=== PATIENT | male | born 1990 | race Caucasian/White ===

== ENCOUNTER 2017-08-08 15:40 | Emergency (ER) | payer SELFPAY ==
[~2017-08-08] VITALS: Ht 180.3 cm; Wt 86.2 kg
--- NOTE | 2017-08-08 16:27 | ED Upper Extremity ---
General Chief Complaint: Upper Extremity Stated Complaint: L ARM PAIN Nursing Triage Note: ARRIVED VIA AMB WITH COMPLAINTS OF LEFT SHOULDER PAIN STARTING ABOUT ONE MONTH AGO. DENIES INJURY. Nursing Sepsis Screen: No Definite Risk Source: patient Exam Limitations: no limitations History of Present Illness Date Seen by Provider: August 08, 2017 Time Seen by Provider: 16:27 Initial Comments 27 yo male patient presents to the ED with c/o 1 month onset of left shoulder pain. denies known injury. Onset: other (1 month onset) Pain/Injury Location: left shoulder Method of Injury: unknown Modifying Factors: Improves With Immobilization; Worse With Movement Allergies and Home Medications Allergies Coded Allergies: No Known Drug Allergies (Unverified , 08/08/17) Home Medications Diclofenac Sodium 75 Mg Tablet.dr, 75 MG PO BID PRN for pain Prescribed by: KEYLA GRIFFITHS on 08/08/171700 Orphenadrine Citrate 100 Mg Tablet.er, 100 MG PO BID PRN for SPASMS Prescribed by: KEYLA GRIFFITHS on 08/08/171700 Prednisone 20 Mg Tab, 40 MG PO DAILY Prescribed by: KEYLA GRIFFITHS on 08/08/17 170 Patient Home Medication List Home Medication List Reviewed: Yes Constitutional: no symptoms reported Respiratory: no symptoms reported Cardiovascular: no symptoms reported Musculoskeletal: see HPI; No back pain; joint pain (left shoulder); No joint swelling, No neck pain Skin: no symptoms reported Psychiatric/Neurological: Denies Numbness, Denies Paresthesia, Denies Tingling , Denies Weakness All Other Systems Reviewed Negative Unless Noted: Yes (Negative excepted noted.) Past Ehiwcec-Atfrve-Ocpjbs Hx Patient Social History Alcohol Use: Occasionally Uses Recreational Drug Use: Yes Drug of Choice: POT Smoking Status: Current Everyday Smoker Recent Foreign Travel: No Contact w/Someone Who Travel: No Recent Infectious Disease Expo: No Past Medical History Surgeries: Yes (precancerous skin lesions removed ) Orthopedic Respiratory: No Cardiac: No Neurological: No Genitourinary: No Gastrointestinal: No Musculoskeletal: No Endocrine: No HEENT: No Cancer: No Psychosocial: No Integumentary: No Family Medical History Reviewed Nursing Family Hx No Pertinent Family Hx Physical Exam Vital Signs Vital Signs - First Documented 08/08/17 15:50 Temp 98.1 Pulse 92 Resp 18 B/P (MAP) 135/85 (102) Pulse Ox 98 O2 Delivery Room Air Capillary Refill : Less Than 3 Seconds General Appearance: WD/WN, no apparent distress Neck: non-tender, full range of motion, supple, normal inspection Cardiovascular: normal peripheral pulses, regular rate, rhythm, no murmur Respiratory: lungs clear, normal breath sounds, no respiratory distress, no accessory muscle use Back: normal inspection, no vertebral tenderness Shoulder: normal ROM; No bone tenderness; pain, soft tissue tenderness (left shoulder tenderness. ); No swelling Elbow/Forearm: normal inspection, non-tender, no evidence of injury, normal ROM , Left Wrist: Yes normal inspection, Yes non-tender, Yes no evidence of injury, Yes normal ROM Hand: normal inspection, non-tender, no evidence of injury, normal ROM, Left Neurologic/Tendon: normal sensation, normal motor functions, normal tendon functions, responds to pain, no evidence tendon injury Neurologic/Psychiatric: no motor/sensory deficits, alert, normal mood/affect, oriented x 3 Skin: normal color, warm/dry Progress/Results/Core Measures Results/Orders My Orders Orders - KEYLA GRIFFITHS Shoulder, Left, 3 Views (08/08/17 16:09) Hydrocodone/Apap 5/325 Tablet (Lortab 5 (08/08/17 16:58) Vital Signs/I&O 08/08/17 08/08/17 15:50 17:07 Temp 98.1 98.1 Pulse 92 92 Resp 18 18 B/P (MAP) 135/85 (102) 135/85 (102) Pulse Ox 98 98 O2 Delivery Room Air Blood Pressure Mean: 102 Diagnostic Imaging Diagonstic Imaging: Xray Plain Films/CT/US/NM/MRI: other (left shoulder) Comments SHOULDER, LEFT, 3 VIEWS INDICATION: Left shoulder pain. COMPARISON: None. FINDINGS: Three views of the left shoulder were obtained. There is no fracture, dislocation, or other acute bony abnormality identified. The soft tissues appear unremarkable. No radiopaque foreign bodies identified. The visualized portions of the left lung are clear. IMPRESSION: No acute fractures or dislocations of the left shoulder. Dictated by: Dictated on workstation # [id number] Reviewed: Reviewed by Me (radiology report reviewed by me) Departure Communication (Admissions) diagnostic findings discussed with the patient. plan for dsch to home. Impression Primary Impression: Muscle strain of left shoulder region Qualified Codes: S46.912A - Strain of unspecified muscle, fascia and tendon at shoulder and upper arm level, left arm, initial encounter Disposition: HOME, SELF-CARE Condition: Improved Departure-Patient Inst. Decision time for Depature: 16:59 Referrals: NO,LOCAL PHYSICIAN (PCP/Family) Primary Care Physician Patient Instructions: Muscle Strain (DC) Add. Discharge Instructions: All discharge instructions reviewed with patient and/or family. Voiced understanding. Medications as instructed. Tylenol extra strength over-the- counter as directed for pain. You may use an ice pack or heating pad as needed for pain. Follow-up with your primary care provider if no improvement in symptoms in 7-10 days. Return in the emergency department for worsened symptoms or any other concerns. 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
--- NOTE | 2017-08-08 16:48 | Diagnostic Imaging Report ---
INDICATION: Left shoulder pain. COMPARISON: None. FINDINGS: Three views of the left shoulder were obtained. There is no fracture, dislocation, or other acute bony abnormality identified. The soft tissues appear unremarkable. No radiopaque foreign bodies identified. The visualized portions of the left lung are clear. IMPRESSION: No acute fractures or dislocations of the left shoulder. Dictated by: Dictated on workstation # [id number]
[2017-08-08] MEDS ORDERED: HYDROcodone/APAP 5 MG/325 MG (LORTAB) TAB PO STA (16:58)
[2017-08-08] MEDS ORDERED: PRD20T PO (17:00)
[2017-08-08] MEDS ORDERED: ORPH100T PO (17:01)
[2017-08-08] MEDS ORDERED: DICL75TA2 PO (17:01)
[2017-08-08 17:07] VITALS: BP 135/85
== END 2017-08-08 17:07 | disposition home or self-care (01) ==
LOC: ER 15:43
DX: S46.912A Strain of unspecified muscle, fascia and tendon at shoulder and upper arm level, left arm, initial encounter (principal); F12.10 Cannabis abuse, uncomplicated; F17.210 Nicotine dependence, cigarettes, uncomplicated; Z79.52 Long term (current) use of systemic steroids; X58.XXXA Exposure to other specified factors, initial encounter
CPT/HCPCS: 73030

== ENCOUNTER 2017-08-31 14:12 | Emergency (ER) | payer SELFPAY ==
[~2017-08-31] VITALS: Ht 180.3 cm; Wt 86.2 kg
[~2017-08-31 14:12] MED LIST: DICL75TA2 PO; ORPH100T PO; PRD20T PO
--- NOTE | 2017-08-31 15:23 | ED Upper Extremity ---
General Chief Complaint: Upper Extremity Stated Complaint: LEFT SHOULDER PAIN Nursing Triage Note: TO ROOM C/O L SHOULDER PAIN FOR 1 MONTH WAS SEEN IN ED 2 WEEKS AGO WITH NEG WORK UP. SHOULDER NOT ANY BETTER. NEEDS NOTE FOR WORK Nursing Sepsis Screen: No Definite Risk History of Present Illness Date Seen by Provider: August 31, 2017 Time Seen by Provider: 15:10 Initial Comments 27-year-old male reports for recurrent left shoulder pain. He was evaluated here approximately 2 weeks ago and received an x-ray of the left shoulder that showed no acute abnormalities. He has been continuing to work where he does lifting of approximately 100 pounds at a time. He's been taking ibuprofen with minimal improvement in his shoulder symptoms. He is right-hand dominant. He's had no previous history of injuries to his left shoulder. He denies any paresthesias or radicular symptoms in his left upper extremity. Onset: other Pain/Injury Location: left shoulder Method of Injury: unknown Allergies and Home Medications Allergies Coded Allergies: No Known Drug Allergies (Unverified , 08/08/17) Home Medications Naproxen 500 Mg Tablet, 500 MG PO BID Take with food Prescribed by: DAVID HERRERA on 08/31/17 1527 Patient Home Medication List Home Medication List Reviewed: Yes Constitutional: no symptoms reported Musculoskeletal: see HPI, joint pain (Left shoulder pain) All Other Systems Reviewed Negative Unless Noted: Yes Past Gcymfow-Rifsow-Ltphuc Hx Past Med/Social Hx: Reviewed Nursing Past Med/Soc Hx Patient Social History Alcohol Use: Occasionally Uses Recreational Drug Use: Yes Drug of Choice: POT Smoking Status: Current Everyday Smoker Recent Foreign Travel: No Contact w/Someone Who Travel: No Recent Infectious Disease Expo: No Past Medical History Surgeries: Yes (precancerous skin lesions removed ) Orthopedic Respiratory: No Cardiac: No Neurological: No Genitourinary: No Gastrointestinal: No Musculoskeletal: No Endocrine: No HEENT: No Cancer: No Psychosocial: No Integumentary: No Family Medical History No Pertinent Family Hx Physical Exam Vital Signs Vital Signs - First Documented 08/31/17 14:37 Temp 99.0 Pulse 89 Resp 18 B/P (MAP) 137/88 (104) Pulse Ox 98 Capillary Refill : Less Than 3 Seconds General Appearance: WD/WN, no apparent distress Cardiovascular: normal peripheral pulses, regular rate, rhythm Respiratory: chest non-tender, lungs clear, normal breath sounds Shoulder: normal inspection, normal ROM (With pain at end points), pain, soft tissue tenderness Neurologic/Psychiatric: no motor/sensory deficits, alert, normal mood/affect, oriented x 3 Comments Left shoulder full range of motion, negative apprehension and Blanco's test. Positive impingement maneuver. Power V/V biceps, triceps and external rotators. Neuro-vascular status intact left upper extremity symmetric with the right. Progress/Results/Core Measures Results/Orders My Orders Orders - DAVID HERRERA Naproxen Tablet (Naprosyn Tablet) (08/31/17 15:30) Medications Given in ED Current Medications Medications Dose Ordered Sig/Jairo Route Start Time Stop Time Status Last Admin Dose Admin Naproxen 500 mg ONCE ONCE PO 08/31/17 15:30 08/31/17 15:31 DC 08/31/17 15:42 500 MG Vital Signs/I&O 08/31/17 14:37 Temp 99.0 Pulse 89 Resp 18 B/P (MAP) 137/88 (104) Pulse Ox 98 Blood Pressure Mean: 104 Departure Impression Primary Impression: Impingement syndrome, shoulder, left Disposition: 01 HOME, SELF-CARE Condition: Improved Departure-Patient Inst. Decision time for Depature: 15:25 Referrals: NO,LOCAL PHYSICIAN (PCP/Family) Primary Care Physician Patient Instructions: Shoulder Impingement (DC) Add. Discharge Instructions: Ice to left shoulder 20 minutes every 2 hours as needed. Take the naproxen as ordered, do not take any ibuprofen or other anti- inflammatories while taking this. You may take Tylenol 650 mg every 6 hours for additional pain relief. You may try [place] balm rub for the left shoulder. Call [facility] for follow-up appointment,[phone]. See about appt with Hunter Samaniego APRN for orthopedics. Return to emergency department for new, urgent health care needs. All discharge instructions reviewed with patient and/or family. Voiced understanding. Scripts Naproxen (Naprosyn) 500 Mg Tablet 500 MG PO BID, #40 TAB 2 Refills Take with food Prov: SHARONDAVID 08/31/17 Work/School Note: Work Release Form Date Seen in the Emergency Department: August 31, 2017 Return to Work: Sep 01, 2017 Restrictions: No Restrictions Other Restrictions Listed Below: Follow up Orthopedics [facility] DAVID HERRERA August 31, 2017 15:23
[2017-08-31] MEDS ORDERED: NAPR-1071 PO (15:27)
[2017-08-31] MEDS ORDERED: NAPROXEN 250 MG (NAPROSYN) TABLET PO ONE (15:30)
[2017-08-31 16:13] VITALS: BP 137/88
== END 2017-08-31 15:42 | disposition home or self-care (01) ==
LOC: EDUNIT# 14:12 → ER 14:14
DX: M75.42 Impingement syndrome of left shoulder (principal); F12.10 Cannabis abuse, uncomplicated; F17.200 Nicotine dependence, unspecified, uncomplicated
CPT/HCPCS: 99283